=== PATIENT | female | born 1970 | race Asian ===

== ENCOUNTER 2024-08-27 09:03 | Day surgery (SDC) | payer BC ==
[2024-08-20 13:59] VITALS: BMI 23.4
[2024-08-27 10:47] VITALS: TEMP 98
[2024-08-27 10:49] VITALS: BP 102/62; PULSE 79; RESP 17
== END 2024-08-27 10:46 | disposition home or self-care (01) ==
LOC: FASU-ENDO 09:03 → EDSEX 09:30 → FASU-ENDO 10:46
PROVIDERS: ATTEND Internal Medicine Gastroenterology
PROC: 0DBN8ZX Excision of Sigmoid Colon, Via Natural or Artificial Opening Endoscopic, Diagnostic (ICD-10-PCS; principal; 2024-08-27 09:54)
DX: Z12.11 Encounter for screening for malignant neoplasm of colon (principal); K63.5 Polyp of colon; K64.1 Second degree hemorrhoids
CPT/HCPCS: 88305-TC